=== PATIENT | female | born 1985 | race Caucasian/White ===

== ENCOUNTER → 2023-05-28 15:41 | Outpatient (REF) | payer OTHER, SELFPAY | LOC: PNTC 15:41 | PROVIDERS: ATTENDING PHYSICIAN Obstetrics & Gynecology | DX: Z36.0 Encounter for antenatal screening for chromosomal anomalies (principal); Z36.82 Encounter for antenatal screening for nuchal translucency | CPT/HCPCS: 76801; 76813 ==

== ENCOUNTER → 2023-07-26 13:35 | Outpatient (REF) | payer OTHER, SELFPAY | LOC: PNTC 13:35 | PROVIDERS: ATTENDING PHYSICIAN Obstetrics & Gynecology | DX: O09.529 Supervision of elderly multigravida, unspecified trimester (principal) | CPT/HCPCS: 76811 ==

== ENCOUNTER 2023-09-14 09:12 | Observation (INO) | payer OTHER, SELFPAY ==
[2023-09-14 09:26] VITALS: BP 136/61; BMI 35.1
[2023-09-14 09:59] LABS: % Basophils 0.5 % (0-2); % Eosinophils 1.2 % (0-6); % Immature Granulocytes 0.5 % (0-0.5); % Lymphocytes 24.8 % (20.5-51.1); % Monocytes 5.8 % (1.7-9.3); % Neutrophils 67.2 % (42.2-75.2); Absolute Eosinophils 0.1 10^3/uL (0-0.7); Absolute Lymphocytes 2.1 10^3/uL (1.2-3.4); Absolute Monocytes 0.5 10^3/uL (0.1-0.6); Absolute Neutrophils 5.8 10^3/uL (1.4-6.5); Hematocrit 32.5 % (37.0-47.0); Hemoglobin 11.1 g/dL (12.0-16.0); Mean Corp Hgb Conc. 34.2 g/dL (33.0-37.0); Mean Corpuscular Volume 93.7 fL (81.0-99.0); Mean Platelet Volume 9.3 fL (7.4-10.4); Nucleated Red Blood Cells % 0 %; Platelet Count 230 10^3/uL (130-400); Red Blood Cell Count 3.47 10^6/uL (4.20-5.40); Red Cell Dist. Width 13.2 % (11.5-14.5); White Blood Cell Count 8.6 10^3/uL (4.8-10.8)
[2023-09-14 10:11] LABS: ALT (SGPT) 44 U/L (0-35); AST (SGOT) 35 U/L (14-36); Albumin 3.3 g/dl (3.5-5.0); Alkaline Phosphatase 88 U/L (38-126); Blood Urea Nitrogen 9 mg/dl (7-17); Calcium 8.9 mg/dl (8.4-10.2); Carbon Dioxide 20 mmol/L (22-30); Chloride 107 mmol/L (98-107); Estimated Creatinine Clearance > 125 ml/min; Glucose 118 mg/dl (70-99); Sodium 133 mmol/L (135-145); Total Bilirubin 0.3 mg/dl (0.2-1.3); Total Protein 5.9 g/dl (6.3-8.2); Uric Acid 3.6 mg/dl (2.5-6.2); eGFR > 60.00
[2023-09-14 10:22] LABS: Urine Albumin Negative (Neg - Trace); Urine Bilirubin Negative (Negative); Urine Character Clear (Clear); Urine Color Yellow; Urine Glucose Negative (Negative); Urine Ketone Negative (Negative); Urine Leukocyte 2+ (Negative); Urine Nitrite Negative (Negative); Urine Occult Blood Negative (Negative); Urine Specific Gravity 1.005 (<1.030); Urine Urobilinogen Negative (Neg - 1+)
[2023-09-14 10:41] LABS: Protein/creatinine Ratio 0.3; Urine Protein 11 mg/dl; Urine Squamous Cell >30 /LPF (Few)
[2023-09-14 10:45] LABS: Urine Bacteria Moderate (Negative)
--- NOTE | 2023-09-14 11:22 | CON.NEURO4 ---
Addendum entered and electronically signed by Fernando Pacheco MD 09/14/23 13:29:
Studies reviewed.
I have personally examined the patient. I reviewed and agree with the CARPENTRY SPECIALIST's Note.
My addenda:
Awake, alert, interactive. No acute distress.
Speech intact.
Follows 2-step requests w/o difficulty. No tremor.
Extra-ocular movements grossly intact.
Facial movements full and symmetric. Hearing intact to normal conversational volume.
Normal UE movements bilaterally.
Absent papilledema bilaterally to funduscopic examination
Neck: full ROM.
Chest: no dyspnea
Heart: no JVD
Ext: (-) Clubbing, (-) Cyanosis, (-) Edema
IMPRESSIONS/RECOMMENDATIONS:
Abrupt onset of new worsening headache. Prior history is suggestive of migraine without aura. There is no evidence at this time of preeclampsia
Provide metoclopramide as needed
By [place] [employer] data, patient may be offered rizatriptan as an alternative without demise or injury
Continue fluoxetine
D/W patient
All questions answered.
Will continue to follow patient, as needed.
Original Note:
Consultation - Neurology 4
-
CONSULTING PHYSICIAN: Fernando Pacheco MD
REFERRING PHYSICIAN: [employer]/ Dr. Woods
DICTATED BY: RU Flower
DATE/TIME OF REQUEST: 09/14/23
DATE/TIME OF CONSULTATION: 09/14/23
Reason for Consultation: Headache
History of Present Illness:
This is a 37-year-old right-handed 27-weeks female who has presented to the hospital by referral of [employer] due to report of intractable headache. Patient reports that five days ago on 09/09/23 she developed a bitemporal, occasionally left
frontal headache. Her initial headache was around a 7-8/10 and not relieved by Tylenol. Her headache seemed to improve and was mild for the next several days, but seemed to worsen again on Sunday09/12/23, and she took another dose of Tylenol. She
thought her headache was completely resolving yesterday but then she woke up today (09/14/23) and it returned around 0730. She rates her current headache a 2/10. She denies any photo/phonophobia, nausea, vomiting, neck pain, dizziness, vision
changes, speech/swallow difficulty, numbness, weakness, chest pain, palpitations, and shortness of breath. Blood pressure is 136/61.
Patient reports a history of headaches typically associated with her menses starting as a teenager. Her headaches in the past were typically associated with photophobia, rarely nausea and having to lay down in a dark room. Prior to , she
would take ibuprofen with relief of her headache after several hours. Her previous headaches were very similar to her current headache except that they have never lasted this long. She reports that her sleep in general has always been poor and
has worsened it slightly. She had a concussion in 2021 while at work and reports having an MRI brain at that time through [facility] that was unremarkable. Her concussion did not seem to affect her headaches. She is not followed by a
Neurologist and has never taken any migraine prevention/relief medications.
Past Medical History: Concussion 2021, depression, migraine without aura
Surgical History: Appendectomy
Family History: Reviewed and noncontributory.
Social History: Denies tobacco, alcohol, and illicit drug use.
Allergies: No known allergies.
Home Medications: See below.
Review of Symptoms:
Patient denies any fever, chest pain, shortness of breath, GI or symptoms.
�Per the HPI.�All systems are reviewed negative except above.
Physical Exam:
The patient is afebrile, abdomen is rounded, breathing is unlabored, skin is warm and dry, no edema.
Neurologic Examination:
The patient is awake, alert and oriented x 3. She is able to follow commands and answer questions appropriately. There is no aphasia or dysarthria. On cranial nerve assessment, pupils are 3 mm bilateral, round and reactive to light and
accommodation. Visual [place] are full. Extraocular movements are intact. Facial sensations are intact and bilaterally symmetrical, there is no facial asymmetry. Hearing is intact bilaterally to normal conversation volume. Tongue palate and uvula are
midline. Sternocleidomastoid strengths are full bilaterally. Motor strengths are 5/5 bilateral upper and lower extremities on medical research [place] scale. There is no drift or involuntary movement noted. Deep tendon reflexes are 2+ bilateral
upper and lower extremities. Sensations of touch, temperature and vibration are intact and bilaterally symmetrical. Coordination is intact by finger to nose bilaterally.
Lab Results: See below.
Neuro Imaging: None.
Differentials for the patient's presentation include:
1. Intractable migraine without aura.
2. Low concern for a structural brain abnormality producing headache.
Patient has the following risk factors for their symptoms: Hx headaches,
Recommendations:
-Provide metoclopramide 10mg PO x1 now for headache relief. May continue this PRN if it helps alleviate headache.
-Do not see a role for neurological imaging at this point.
-If headache persists or worsens, would consider use of a triptan medication for headache relief and MRI brain imaging.
Discussed patient care with: Dr. Pacheco, the patient
Vital Signs and Labs
-
Vital Signs and Labs:
Vital Signs
Temp Pulse Resp BP
98.4 F 72 18 136/61
09/14/23 09:26 09/14/23 09:26 09/14/23 09:26 09/14/23 09:26
Lab Results
09/14/23 09:43
09/14/23 09:43
Sodium 133 mmol/L (135-145) L 09/14/23 09:43
Potassium 4.0 mmol/L (3.5-5.1) 09/14/23 09:43
BUN 9 mg/dl (7-17) 09/14/23 09:43
Glucose 118 mg/dl (70-99) H 09/14/23 09:43
Calcium 8.9 mg/dl (8.4-10.2) 09/14/23 09:43
Medications
-
Home Medications
�Medication �Instructions �Recorded
fluoxetine 10 mg capsule 10 mg PO DAILY 09/14/23
levocetirizine 5 mg tablet (Xyzal) 5 mg PO DAILY 09/14/23
vitamin-ferrous fumarate 1 tab PO DAILY 09/14/23
28 mg iron-folic acid 800 mcg
tablet ( Tablet)
[2023-09-14] MEDS: REGLAN 10 MG PO (12:03)
== END 2023-09-14 14:00 | disposition home or self-care (01) ==
LOC: LDRP 09:12
PROVIDERS: ADMITTING PHYSICIAN Obstetrics & Gynecology; OTHER PHYSICIAN Psychiatry & Neurology Neurology
DX: R51.9 Headache, unspecified (principal); R74.01 Elevation of levels of liver transaminase levels; O26.892 Other specified pregnancy related conditions, second trimester; Z3A.27 27 weeks gestation of pregnancy; F32.A Depression, unspecified; O99.342 Other mental disorders complicating pregnancy, second trimester; Z87.820 Personal history of traumatic brain injury
CPT/HCPCS: 80053; 81003; 81015; 82570; 84156; 84550; 85025; 86850; 86900; 86901; G0378

== ENCOUNTER → 2023-10-26 08:33 | Outpatient (REF) | payer OTHER, SELFPAY | LOC: RCS 08:33 | PROVIDERS: ATTENDING PHYSICIAN Internal Medicine Cardiovascular Disease; FAMILY PHYSICIAN Internal Medicine | DX: R00.8 Other abnormalities of heart beat (principal) | CPT/HCPCS: 93306 ==

== ENCOUNTER 2023-11-26 18:14 | Observation (INO) | payer OTHER, SELFPAY ==
[2023-11-26 18:16] VITALS: BMI 35.3
[2023-11-26 18:18] VITALS: BP 138/68
== END 2023-11-26 20:20 | disposition home or self-care (01) ==
LOC: LDRP 18:14
PROVIDERS: ADMITTING PHYSICIAN Obstetrics & Gynecology
DX: O47.1 False labor at or after 37 completed weeks of gestation (principal); Z3A.38 38 weeks gestation of pregnancy
CPT/HCPCS: 59025; 36415; 86850; 86900; 86901; G0378

== ENCOUNTER 2023-12-09 16:58 | Inpatient (IN) | payer OTHER, SELFPAY ==
[2023-12-09 17:09] VITALS: BP 134/68; BMI 35.6
[2023-12-09] MEDS: LR 1000 IV (20:03)
[2023-12-09 20:09] LABS: % Basophils 0.4 % (0-2); % Eosinophils 1.5 % (0-6); % Immature Granulocytes 0.4 % (0-0.5); % Lymphocytes 34.3 % (20.5-51.1); % Monocytes 6.7 % (1.7-9.3); % Neutrophils 56.7 % (42.2-75.2); Absolute Eosinophils 0.1 10^3/uL (0-0.7); Absolute Lymphocytes 2.7 10^3/uL (1.2-3.4); Absolute Monocytes 0.5 10^3/uL (0.1-0.6); Absolute Neutrophils 4.5 10^3/uL (1.4-6.5); Hematocrit 32.6 % (37.0-47.0); Hemoglobin 11.7 g/dL (12.0-16.0); Mean Corp Hgb Conc. 35.9 g/dL (33.0-37.0); Mean Corpuscular Hgb 31.7 pg (27.0-31.0); Mean Corpuscular Volume 88.3 fL (81.0-99.0); Nucleated Red Blood Cells % 0 %; Platelet Count 221 10^3/uL (130-400); Red Blood Cell Count 3.69 10^6/uL (4.20-5.40); Red Cell Dist. Width 13.4 % (11.5-14.5); White Blood Cell Count 7.9 10^3/uL (4.8-10.8)
[2023-12-09 20:23] LABS: ALT (SGPT) 16 U/L (0-35); AST (SGOT) 30 U/L (14-36); Albumin 3.7 g/dl (3.5-5.0); Alkaline Phosphatase 194 U/L (38-126); Blood Urea Nitrogen 9 mg/dl (7-17); Calcium 9.4 mg/dl (8.4-10.2); Carbon Dioxide 20 mmol/L (22-30); Chloride 106 mmol/L (98-107); Estimated Creatinine Clearance > 125 ml/min; Glucose 72 mg/dl (70-99); Potassium 4.5 mmol/L (3.5-5.1); Sodium 130 mmol/L (135-145); Total Bilirubin 0.5 mg/dl (0.2-1.3); Total Protein 6.1 g/dl (6.3-8.2); eGFR > 60.00
[2023-12-09] MEDS: CYTOTEC 25 MICROGRAM VAG (20:50)
[2023-12-10] MEDS: MORPHINE SULFATE 2 MG IV (01:16)
[2023-12-10] MEDS: SUBLIMAZE 100 MCG EPIDURAL (02:16)
[2023-12-10] MEDS: FENTANYL/BUPIVACAINE 100 EPIDURAL (02:16)
[2023-12-10] MEDS: LR 1000 IV (02:39)
[2023-12-10] MEDS: ANCEF 10 IV (05:42)
[2023-12-10] MEDS: TYLENOL 1000 MG PO (05:42)
[2023-12-10] MEDS: BICITRA 30 ML PO (05:42)
[2023-12-10] MEDS: ZITHROMAX INFUSION 250 IV (05:50)
[2023-12-10] MEDS: PITOCIN 30 UNITS/NSS 500 ML IV (06:06)
[2023-12-10 06:33] LABS: Cord ABG Comment CORD BLOOD
[2023-12-10 06:45] LABS: B.E. Cord ABG -2.8 mMOL/L; HCO3 Cord ABG 25.1 mmol/L; O2 Saturation % Cord ABG 18.7 %; PCO2 Cord ABG 56 mmHg; PO2 Cord ABG 12 mmHg; pH Cord ABG 7.26
[2023-12-10 06:49] LABS: B.E. Cord ABG -3.3 mMOL/L; HCO3 Cord ABG 25.8 mmol/L; O2 Saturation % Cord ABG 14.5 %; PCO2 Cord ABG 63 mmHg; PO2 Cord ABG 11 mmHg; pH Cord ABG 7.22
[2023-12-10] MEDS: TORADOL 15 MG IV ×3 (07:49→18:37)
[2023-12-10] MEDS: PROZAC 10 MG PO (07:52)
[2023-12-10] MEDS: PRENATAL PLUS 1 TABLET PO (07:52)
[2023-12-10] MEDS: ZYRTEC 10 MG PO (07:52)
--- NOTE | 2023-12-10 10:36 | W.PN.ANS.POP ---
Anesthesia Post Operative
- Anesthesia Post Op Note
Vital Signs Stable-See Nursing Note: Yes
Airway Patent: Yes
Adequate Pain Control: Yes
Change in Mental Status: No
Current Postoperative Nausea & Vomiting: No
Anesthesia Complications: No
General Anesthetic Recall: No
Unplanned Admission: No
Post Op Hydration Adequate: Yes
[2023-12-10] MEDS: TYLENOL 650 MG PO (16:18)
[2023-12-11] MEDS: TORADOL 15 MG IV (00:32)
[2023-12-11 06:52] LABS: Hematocrit 29.3 % (37.0-47.0); Hemoglobin 10.3 g/dL (12.0-16.0); Mean Corp Hgb Conc. 35.2 g/dL (33.0-37.0); Mean Corpuscular Hgb 32.5 pg (27.0-31.0); Mean Corpuscular Volume 92.4 fL (81.0-99.0); Mean Platelet Volume 10.5 fL (7.4-10.4); Platelet Count 163 10^3/uL (130-400); Red Blood Cell Count 3.17 10^6/uL (4.20-5.40); Red Cell Dist. Width 13.3 % (11.5-14.5); White Blood Cell Count 11.8 10^3/uL (4.8-10.8)
[2023-12-11] MEDS: PROZAC 10 MG PO (07:41)
[2023-12-11] MEDS: PRENATAL PLUS 1 TABLET PO (07:41)
[2023-12-11] MEDS: ZYRTEC 10 MG PO (07:42)
[2023-12-11] MEDS: MOTRIN 600 MG PO ×3 (09:32→22:48)
[2023-12-11 13:58] LABS: Syphilis/T. pallidum Ab Reflex Negative (Negative)
[2023-12-11] MEDS: SENOKOT-S 1 TABLET PO (20:58)
[2023-12-12] MEDS: PROZAC 10 MG PO (07:57)
[2023-12-12] MEDS: ZYRTEC 10 MG PO (07:57)
[2023-12-12] MEDS: PRENATAL PLUS 1 TABLET PO (07:57)
[2023-12-12] MEDS: TYLENOL 650 MG PO (08:01)
--- NOTE | 2023-12-12 10:25 | W.DS.TRANS ---
DC Summary - Secured Entrance Monitor
-
Discharge Instructions:
Discharge Diagnosis/Procedures delivered by csection; nonreassuring
intolerance of labor; anemia
Diet Regular
Activity No strenuous activity
Driving Restrictions No driving for 2 weeks
Bathing Restrictions OK to Shower
Instructions:
Stand-Alone Forms: [facility] Delivery
Changes to Home Medications: No
Discharge Medications:
DC Medications w/original date entered in [employer]
fluoxetine 10 mg capsule 10 mg PO DAILY Mental Health/Anxiety 09/14/23
levocetirizine 5 mg tablet (Xyzal) 5 mg PO DAILY Allergies 09/14/23
vitamin-ferrous fumarate 28 mg iron-folic acid 800 mcg tablet ( Tablet) 1 tab PO DAILY Supplement 09/14/23
Vitamin C 1 tab PO DAILY 12/09/23
calcium 1 tab PO DAILY 12/09/23
vitamin B complex 1 tab PO DAILY 12/09/23
acetaminophen 325 mg tablet 650 mg (2 x 325 mg) PO Q4HPRN PRN mild pain #0 tabs 12/12/23
ferrous sulfate 325 mg (65 mg iron) tablet 325 mg PO DAILY #90 tabs 12/12/23
ibuprofen 600 mg tablet 600 mg PO Q6HPRN PRN cramps/pain #60 tabs 12/12/23
oxycodone 5 mg tablet 5 mg PO Q4H PRN severe pain #7 tabs 12/12/23
sennosides 8.6 mg-docusate sodium 50 mg tablet 1 tab PO DAILYPRN PRN constipation #0 tabs 12/12/23
Home Medication Changes
Pending Results: No
Total time spent discharging patient (in min): 30
== END 2023-12-12 11:10 | disposition home or self-care (01) | DRG 788 ==
LOC: LDRP 16:58
PROVIDERS: ADMITTING PHYSICIAN Obstetrics & Gynecology
PROC: 3E0P7GC Introduction of Other Therapeutic Substance into Female Reproductive, Via Natural or Artificial Opening (ICD-10-PCS; 2023-12-09)
PROC: 4A1HXCZ Monitoring of Products of Conception, Cardiac Rate, External Approach (ICD-10-PCS; 2023-12-10)
PROC: 10D00Z1 Extraction of Products of Conception, Low, Open Approach (ICD-10-PCS; 2023-12-10)
DX: O48.0 Post-term pregnancy (principal); O76 Abnormality in fetal heart rate and rhythm complicating labor and delivery; O36.8130 Decreased fetal movements, third trimester, not applicable or unspecified; O99.02 Anemia complicating childbirth; O99.344 Other mental disorders complicating childbirth; F32.A Depression, unspecified; F41.9 Anxiety disorder, unspecified; Z3A.40 40 weeks gestation of pregnancy; Z37.0 Single live birth; Z79.899 Other long term (current) drug therapy
CPT/HCPCS: 88307; 76815; 80053; 82803; 85025; 85027; 86780; 86850; 86900; 86901